=== PATIENT | male | born 1980 | race Caucasian/White ===

== ENCOUNTER 2021-04-11 22:59 | Emergency (ER) | payer OTHER ==
[~2021-04-11] VITALS: Ht 182.8 cm; Wt 95.3 kg
[~2021-04-11 22:59] MED LIST: FLEXERIL10 MG PO; FLEXERIL5 MG PO; HYDROCODONE BIT1 T11 PO; MOTRIN800 MG PO; NKHM; PENICILLIN VK500 MG PO; PREDNICOT20 MG PO; VOLTAREN50 M1 PO
[2021-04-12] MEDS ORDERED: HYDROCODONE-AC1 EAC1 PO (03:01)
== END 2021-04-12 03:27 | disposition home or self-care (01) ==
LOC: ED 22:59
DX: S62.339A Displaced fracture of neck of unspecified metacarpal bone, initial encounter for closed fracture (principal); F17.200 Nicotine dependence, unspecified, uncomplicated; W22.8XXA Striking against or struck by other objects, initial encounter; Y93.89 Activity, other specified; Y92.89 Other specified places as the place of occurrence of the external cause; Y99.8 Other external cause status